=== PATIENT | female | born 1960 | race Caucasian/White ===

== ENCOUNTER 2022-02-05 16:09 | Emergency (ER) | payer OTHER ==
[~2022-02-05] VITALS: Ht 175.3 cm; Wt 91.6 kg
[2022-02-05] MEDS ORDERED: MEDROLPACK PO (19:20)
[2022-02-05] MEDS ORDERED: AMOX1TAB5 PO (19:20)
== END 2022-02-05 21:20 | disposition home or self-care (01) ==
LOC: ER 16:09
DX: J03.90 Acute tonsillitis, unspecified (principal)

== ENCOUNTER 2022-07-01 10:14 | Emergency (ER) | payer OTHER ==
[~2022-07-01] VITALS: Ht 175.3 cm; Wt 94.8 kg
[~2022-07-01 10:14] MED LIST: AMOX1TAB5 PO; MEDROLPACK PO
[2022-07-01] MEDS ORDERED: TIZANIDINE HCL4 MG PO (10:51)
[2022-07-01] MEDS ORDERED: NORVASC5 MG PO (10:51)
[2022-07-01] MEDS ORDERED: CIPRO500 MG PO (10:53)
[2022-07-01] MEDS ORDERED: CYCLOBENZAPRINE10 MG PO (13:31)
[2022-07-01] MEDS ORDERED: DICLOFENAC POTA50 MG PO (13:32)
== END 2022-07-01 15:12 | disposition home or self-care (01) ==
LOC: ER 10:14
DX: M51.26 Other intervertebral disc displacement, lumbar region (principal); R51.9 Headache, unspecified

== ENCOUNTER 2022-07-01 14:51 | Outpatient (CLI) | payer OTHER | END 2022-07-01 15:14 | disposition home or self-care (01) | LOC: LAB 14:51 | DX: M51.35 Other intervertebral disc degeneration, thoracolumbar region (principal) ==

== ENCOUNTER 2022-07-03 07:56 | Outpatient (CLI) | payer OTHER ==
[~2022-07-03 07:56] MED LIST changes: +CIPRO500 MG PO; +CYCLOBENZAPRINE10 MG PO; +DICLOFENAC POTA50 MG PO; +NORVASC5 MG PO; +TIZANIDINE HCL4 MG PO
== END 2022-07-03 08:32 | disposition home or self-care (01) ==
LOC: MRI 07:56
PROVIDERS: ATTEND General Practice
DX: M51.35 Other intervertebral disc degeneration, thoracolumbar region (principal)
CPT/HCPCS: 72149

== ENCOUNTER 2022-07-31 08:13 | Emergency (ER) | payer OTHER ==
[~2022-07-31] VITALS: Ht 175.3 cm; Wt 95.3 kg
== END 2022-07-31 13:06 | disposition home or self-care (01) ==
LOC: ER 08:13
DX: R51.9 Headache, unspecified (principal); I10 Essential (primary) hypertension

== ENCOUNTER → 2023-09-02 | Emergency (ER) | payer OTHER ==
[~2023-09-02] VITALS: Ht 175.3 cm; Wt 93.9 kg
== END | disposition home or self-care (01) ==
LOC: ER 10:24
DX: H43.391 Other vitreous opacities, right eye (principal)

== ENCOUNTER 2023-10-14 07:41 | Emergency (ER) | payer OTHER ==
[~2023-10-14] VITALS: Ht 175.3 cm; Wt 94.3 kg
[2023-10-14 09:38] LABS: HEMOGLOBIN 12.3 g/dL (12.0-15.00); MEAN CELL VOLUME 89.5 fL (80.00-100.00); MEAN CORPUSCULAR HEMOGLOBIN 29.9 pg (27.00-32.0); MEAN CORPUSCULAR HGB CONC 33.4 g/dl (32.0-36.0); PLATELET COUNT 298 K/uL (150-450); RED BLOOD COUNT 4.13 M/uL (4.00-6.00); RED CELL DISTRIBUTION WIDTH 15.5 % (11.5-14.5)
[2023-10-14] MEDS ORDERED: ZITHROMAX500 MG PO (10:14)
[2023-10-14] MEDS ORDERED: TUSNEL LIQUID178 ML PO (10:14)
== END 2023-10-14 10:43 | disposition home or self-care (01) ==
LOC: ER 07:41
PROVIDERS: General Practice
DX: B34.9 Viral infection, unspecified (principal); Z20.822 Contact with and (suspected) exposure to COVID-19

== ENCOUNTER 2024-08-20 11:18 | Emergency (ER) | payer OTHER ==
[~2024-08-20] VITALS: Ht 175.3 cm; Wt 97.5 kg
[~2024-08-20 11:18] MED LIST changes: +TUSNEL LIQUID178 ML PO; +ZITHROMAX500 MG PO
== END 2024-08-20 13:36 | disposition home or self-care (01) ==
LOC: ER 11:20
DX: R53.81 Other malaise (principal); J06.9 Acute upper respiratory infection, unspecified; Z20.822 Contact with and (suspected) exposure to COVID-19